=== PATIENT | female | born 1945 | race Caucasian/White ===

== ENCOUNTER 2019-04-30 12:27 | Emergency (ER) | payer OTHER ==
--- NOTE | 2019-04-30 13:04 | ED Physician Documentation ---
PD HPI LOWER EXT INJURY - Stated complaint Stated Complaint: ANKLE INJURY - Chief complaint Chief Complaint: Ext Problem - History obtained from History obtained from: Patient - History of Present Illness PD HPI LOW EXT INJURY LOCATION: Right, Ankle Type of injury: Twist Where injury occurred: Home (she says she stepped on uneven board with foot against an object, so had pressure of the lateral ankle against firm area. Pain at lateral ankle. Not medially tender.) Timing - onset: Yesterday Timing - details: Abrupt onset, Still present Worsened by: Moving, Palpating, Other (walking) Associated symptoms: Swelling. No: Weakness, Numbness Similar symptoms before: Diagnosis (had broken other ankle last year.) Recently seen: Not recently seen Review of Systems Skin: denies: Abrasion (s), Laceration (s) Neurologic: denies: Focal weakness, Numbness PD PAST MEDICAL HISTORY - Past Medical History Cardiovascular: None Respiratory: None Neuro: None Endocrine/Autoimmune: None - Allergies Allergies/Adverse Reactions: Allergies Allergy/AdvReac Type Severity Reaction Status Date / Time tetanus- horse serum Allergy Unknown Uncoded 04/30/19 12:37 - Living Situation Living Situation: reports: Alone Living Arrangement: reports: At home PD ED PE NORMAL - Vitals Vital signs reviewed: Yes - General General: Alert and oriented X 3, Well developed/nourished - Back Back: No spinal TTP - Derm Derm: Normal color, Warm and dry - Extremities Extremities: Other (right ankle with tenderness along distal fibula. Medially not tender. No gross laxity on stress testing of ankle. ) - Neuro Neuro: Alert and oriented X 3, No motor deficit, No sensory deficit, Normal speech Results - Vitals Vitals: Vital Signs - 24 hr 04/30/19 14:00 Temperature 36.5 C Heart Rate 74 Respiratory 18 Rate Blood Pressure 144/72 H O2 Saturation 97 Oxygen O2 Source Room air - Rads (name of study) right ankle Radiology: Prelim report reviewed (distal fibular fracture above angle of the mortis, nondisplaced. ), See rad report PD MEDICAL DECISION MAKING - ED course Complexity details: reviewed results (fibula fracture, nondisplaced. Medial a nkle not tender. No gross laxity on stress testing. Does not feel like unstable fracture. She had previously broken other ankle, so has boot orthosis at home. ), considered differential, d/w patient Departure - Departure Disposition: 01 Home, Self Care Clinical Impression: Fracture of distal end of fibula Qualifiers: Encounter type: initial encounter Fracture type: closed Fracture morphology: unspecified fracture morphology Laterality: right Qualified Code(s): S82.831A - Other fracture of upper and lower end of right fibula, initial encounter for closed fracture Condition: Stable Record reviewed to determine appropriate education?: Yes Health Concerns: ankle injury Plan of Treatment: splint Care Goals: healing fracture Assessment: xray and splint Instructions: ED Fx Ankle Lateral Malleolus Follow-Up: [facility] [Provider Group] Comments: Use the ankle brace or your boot orthosis for the next 4 weeks for healing time for the fracture. You do not have to wear it when resting. Use the crutch as needed for partial weightbearing. Tylenol or ibuprofen as needed for pains. Recheck and 1 to 2 weeks to ensure it still healing and staying in location. Discharge Date/Time: 04/30/19 14:00
--- NOTE | 2019-04-30 13:07 | XRAY Report ---
Reason: pain, fall Procedure Date: 04/30/2019 Accession Number: [id number] / [id number] Procedure: XR - Ankle 3 View RT CPT Code: FULL RESULT: EXAM: RIGHT ANKLE RADIOGRAPHY EXAM DATE: 04/30/2019 12:36 PM. CLINICAL HISTORY: Pain, fall. COMPARISON: XR ANKLE COMPLETE MIN 3 VIEW 04/03/2012 2:08 PM. TECHNIQUE: 3 views. FINDINGS: Bones: Interval distal fibular fracture, comminuted with the lower fracture lines at the level of the syndesmosis. Joints: Despite intrasyndesmotic extension of the distal fibula fracture, the ankle mortise remains symmetric as seen. Soft Tissues: Soft tissue swelling is seen in the ankle region. IMPRESSION: Distal fibula fracture, Tam C. RADIA The call report notification system was initiated by Dr. Max Gentile at 01:05 PM on 04/30/2019. The above call report findings were discussed with Dr. Manzo by Dr. Max Gentile at 01:06 PM on 04/30/2019.
[2019-04-30 14:00] VITALS: BP 144/72
== END 2019-04-30 14:00 | disposition home or self-care (01) ==
LOC: ED 12:27
DX: S82.831A Other fracture of upper and lower end of right fibula, initial encounter for closed fracture (principal); W23.0XXA Caught, crushed, jammed, or pinched between moving objects, initial encounter; X50.1XXA Overexertion from prolonged static or awkward postures, initial encounter; Y92.009 Unspecified place in unspecified non-institutional (private) residence as the place of occurrence of the external cause
CPT/HCPCS: 99282; 99283

== ENCOUNTER 2021-10-12 08:00 | Outpatient (CLI) | payer OTHER | END 2021-10-12 23:59 | LOC: LAB.N 08:00 | PROVIDERS: ATTEND Family Medicine | DX: M79.605 Pain in left leg (principal) | CPT/HCPCS: 36415; 85379 ==

== ENCOUNTER 2021-10-12 21:45 | Emergency (ER) | payer OTHER ==
--- NOTE | 2021-10-12 22:07 | ED Physician Documentation ---
History of Present Illness - Stated complaint Stated Complaint: LT CALF INJ - Chief complaint Chief Complaint: Ext Problem - History obtained from History obtained from: Patient - History of Present Illness Timing: How many weeks ago (1) - Additonal information Additional information: patient was kicked by a horse to left lower leg 1 week ago, has had persistent focal swelling to the pretibial area with mild persistent tenderness, as well as subtle swelling distal to the area of injury. She is chiefly concerned about DVT. 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 : None HEENT: None Psych: None Musculoskeletal: None Derm: None - Past Surgical History Past Surgical History: No - Present Medications Home Medications: Ambulatory Orders Medication Instructions Recorded Confirmed No Known Home Medications 10/12/21 10/12/21 - Allergies Allergies/Adverse Reactions: Allergies Allergy/AdvReac Type Severity Reaction Status Date / Time tetanus- horse serum Allergy Unknown Uncoded 10/12/21 21:59 - Social History Does the pt smoke?: No Smoking Status: Never smoker Does the pt drink ETOH?: Yes Does the pt have substance abuse?: No - Immunizations Immunizations are current?: No - POLST Patient has POLST: No PD ED PE NORMAL - Vitals Vital signs reviewed: Yes - General General: Alert and oriented X 3, No acute distress, Well developed/nourished - Respiratory Respiratory: No respiratory distress - Extremities Extremities: Normal ROM s pain, No calf tenderness / cord PD ED PE EXPANDED - Extremities TEA LE visual: 1 - swelling, tenderness Results - Vitals Vitals: Oxygen O2 Source Room air - Rads (name of study) left tib / fib xrays Radiology: Prelim report reviewed, See rad report LLE venous US Radiology: Prelim report reviewed, See rad report PD MEDICAL DECISION MAKING - ED course Complexity details: reviewed results, re-evaluated patient, considered differential, d/w patient ED course: persistent mostly focal swelling and tenderness to left lower leg since being kicked by a horse one week ago. No fracture on xray and no DVT on US. Results d/w patient, return precautions discussed. Departure - Departure Disposition: 01 Home, Self Care Clinical Impression: Bakers cyst, Contusion of leg, left Condition: Good Instructions: ED Cyst Adam, ED Contusion Lower Ext Discharge Date/Time: 10/13/21 00:24
--- NOTE | 2021-10-12 23:18 | XRAY Report ---
PROCEDURE: Tib/Fib LT INDICATIONS: injury 1 week ago, persistent swelling, tenderness TECHNIQUE: 2 views of the tibia and fibula were acquired. COMPARISON: None. FINDINGS: Bones: No fractures or dislocations. No suspicious bony lesions. A linear lucency in the medial ma lleolar area is most likely caused by bony ridge. Soft tissues: No suspicious soft tissue calcifications or masses. There is soft tissue edema. IMPRESSION: No acute osseous abnormalities. There is soft tissue edema. If clinical symptoms persist or clinical suspicion for pathology is high, a repeat examination or advanced imaging such as CT or MRI is recomm ended. Reviewed by: Nilesh Brewer MD on 10/12/2021 11:17 PM PST Approved by: Nilesh Brewer MD on 10/12/2021 11:17 PM PST Station ID: [id number]
--- NOTE | 2021-10-13 00:02 | Ultrasound Report ---
PROCEDURE: Duplex Ext Veins Left INDICATIONS: recent injury, persistent LLE swelling TECHNIQUE: Real-time imaging, as well as color and pulse Doppler interrogation, were performed of the lower extr emity deep veins from the inguinal ligament to the popliteal fossa. COMPARISON: None. FINDINGS: The deep veins are normally compressible, and free of intraluminal thrombus. Color and pu lse Doppler demonstrate normal phasic intraluminal flow. There is normal augmentation response to di stal compression maneuver. There is a 4.8 x 1.5 x 1.5 cm cystic mass in the popliteal fossa, compati ble with a Adam's cyst. IMPRESSION: 1. No DVT in the left lower extremity. 2. A Adam's cyst in the popliteal fossa measuring 4.8 x 1.5 x 1.5 cm. Reviewed by: Nilesh Brewer MD on 10/13/2021 12:00 AM PST Approved by: Nilesh Brewer MD on 10/13/2021 12:00 AM PST Station ID: [id number]
[2021-10-13 00:20] VITALS: BP 146/80
== END 2021-10-13 00:24 | disposition home or self-care (01) ==
LOC: ED 21:45
DX: S80.12XA Contusion of left lower leg, initial encounter (principal); W55.12XA Struck by horse, initial encounter; M71.22 Synovial cyst of popliteal space [Baker], left knee
CPT/HCPCS: 99282; 99284